=== PATIENT | female | born 1965 | race Caucasian/White ===

== ENCOUNTER 2018-11-04 23:44 | Emergency (ER) | payer BC ==
--- NOTE | 2018-11-05 03:51 | ER Document Report ---
ED General - General Chief Complaint: Back Pain Stated Complaint: WEAKNESS Time Seen by Provider: 11/05/18 03:50 Primary Care Provider: NEVA LOBATO NP [NO LOCAL MD] - 11/07/18 Notes: Patient is a 53-year-old female brought in by ambulance who presents to the emergency department with a chief complaint of back pain. Patient states that she has chronic back pain and when she has a herniated disc. She was able to s how a picture on her phone, but did not have paperwork on her MRI. Patient is being seen by a account resolution specialist who have done 2 MRIs in the past, therefore diagnosing her herniated disc. Patient is scheduled for spine surgery on November 15. She called her primary care provider and they advised her to come to the ED to be evaluated. Patient states that she still is able to walk, but feels weaker than normal. Patient also states that she has some anal leaking and is unsure whether or not is able to pee. She states that she cannot feel her bladder. States that she is along dermatomes L4 and L5. Patient is currently on gabapentin, Mirapex, [place], and diclofenac for her pain. TRAVEL OUTSIDE OF THE [place] IN LAST 30 DAYS: No - Related Data Allergies/Adverse Reactions: ampicillin Allergy (Verified 11/04/18 23:49) Past Medical History - Social History Smoking Status: Current Every Day Smoker Chew tobacco use (# tins/day): No Frequency of alcohol use: None Drug Abuse: None Family History: Reviewed & Not Pertinent Patient has suicidal ideation: No Patient has homicidal ideation: No Renal/ Medical History: Denies: Hx Peritoneal Dialysis Review of Systems - Review of Systems Notes: REVIEW OF SYSTEMS: CONSTITUTIONAL : Denies recent illness. Denies recent unintentional weight loss. Denies fever, chills, or sweats. EENT: Denies eye, ear, throat, or mouth pain, discharge, or symptoms. Denies nasal or sinus congestion. CARDIOVASCULAR: Denies chest pain. RESPIRATORY: Denies shortness of breath, cough, congestion, difficulty breathing, or wheezing. GASTROINTESTINAL: Denies nausea, vomiting, and diarrhea. Denies abdominal pain. Denies constipation. GENITOURINARY: Denies difficulty urinating, burning, blood in urine, urgency or frequency. MUSCULOSKELETAL: See HPI SKIN: Denies rash, itchiness, or lesions HEMATOLOGIC : Denies easy bruising or bleeding. LYMPHATIC: Denies swollen, painful, enlarged glands. NEUROLOGICAL: See HPI PSYCHIATRIC: Denies stress, anxiety, alteration in sleep patterns, or depression. All other systems reviewed and negative. Physical Exam - Vital signs Vitals: Temp Pulse Resp BP Pulse Ox 98.1 F 87 16 130/78 H 96 11/04/18 23:49 11/04/18 23:49 11/04/18 23:49 11/04/18 23:49 11/04/18 23:49 - Notes Notes: Exam the morning on the PHYSICAL EXAMINATION: GENERAL: Appears well, healthy, well-nourished, no acute distress. HEAD: Normocephalic, atraumatic. EYES: PERRL, conjunctiva normal, all extraocular movements intact, sclera nonicteric ENT: Moist mucous membranes. NECK: Supple, no noticeable swelling, redness, rash. Normal range of motion. LUNGS: Equal breath sounds bilaterally and clear to auscultation. No wheezes rales or rhonchi. CARDIOVASCULAR: S1-S2, regular rate, regular rhythm. Radial pulses 2+, normal. ABDOMEN: Normoactive bowel sounds. Soft, nontender, no guarding, no rebound tenderness, and no masses palpated. EXTREMITIES: No pitting or edema. No cyanosis. NEUROLOGICAL: Moves all extremities upon command. Strength 4/5 in lower extremities. Strength 5 out of 5 in upper extremities. PSYCH: Normal mood, normal affect. SKIN: Warm, dry. No rash, lesions, ulcerations noted. Normal skin turgor. Course - Re-evaluation Re-evalutation: 11/05/18 06:45 Patient CBC and chemistries are unremarkable at this time. I did a rectal exam with JELENA Rawls at bedside. The patient has rectal tone and was able to walk for me. Patient still does have a feeling along the dermatomes S2-S5. I discussed the risks and benefits of having an MRI. Patient feels that an MRI will not help with fixing the problem. I agree with this, as she does have surgery scheduled in 10 days from now. Patient states that she feels that not rosendo was done. I told her that labs were done and I did a rectal exam. I have advised her to follow-up with her surgeon on Wednesday. I thoroughly discussed return precautions. Follow-up precautions were given. Verbal discharge instructions were given to the patient. They verbalized understanding. They are stable for discharge. Your - Vital Signs Vital signs: Temp Pulse Resp BP Pulse Ox 98.1 F 72 16 132/87 H 96 11/04/18 23:49 11/05/18 07:51 11/05/18 07:51 11/05/18 07:51 11/05/18 07:51 - Laboratory Result Diagrams: 11/05/18 05:05 11/05/18 05:05 Laboratory results interpreted by me: 11/05/18 11/05/18 05:05 05:05 WBC 11.0 H Chloride 111 H Creatinine 0.48 L Discharge - Discharge Clinical Impression: Back pain Qualifiers: Back pain location: back pain in unspecified location Chronicity: chronic Back pain laterality: bilateral Qualified Code(s): M54.9 - Dorsalgia, unspecified Condition: Stable Disposition: HOME, SELF-CARE Additional Instructions: You were seen today in the emergency department for back pain, rectal leakage, and inability to feel the urge to urinate. Your rectal exam showed that you did have rectal tone. Please follow-up with your account resolution specialist on Wednesday in regards to this visit. Please continue to take your current pain medication. If you are unable to walk, urinate on your self, or stool on yourself, please return to the emergency department. Referrals: NEVA LOBATO NP [NO LOCAL MD] - 11/07/18
[2018-11-05] MEDS ORDERED: GABAPENTIN 300 MG CAPSULE PO ONE (04:08)
[2018-11-05] MEDS ORDERED: HYDROCODONE/ACETAMINOPHEN 5-325 MG TABLET PO ONE (04:08)
[2018-11-05 05:31] LABS: ABSOLUTE BASOPHILS # (AUTO) 0.1 10^3/uL (0.0-0.2); ABSOLUTE EOSINOPHILS # (AUTO) 0.3 10^3/uL (0.0-0.6); ABSOLUTE LYMPHOCYTES (AUTO) 2.8 10^3/uL (0.5-4.7); ABSOLUTE MONOCYTES (AUTO) 0.7 10^3/uL (0.1-1.4); ABSOLUTE NEUT (AUTO) 7.1 10^3/uL (1.7-8.2); EOSINOPHILS % (AUTO) 2.9 % (0-6); HEMATOCRIT 42.3 % (36.0-47.0); HEMOGLOBIN 14.4 g/dL (12.0-15.5); LYMPHOCYTES % (AUTO) 25.2 % (13-45); MEAN CORPUSCULAR HEMOGLOBIN 31.4 pg (27.0-33.4); MEAN CORPUSCULAR HGB CONC 34.1 g/dL (32.0-36.0); MEAN CORPUSCULAR VOLUME 92 fl (80-97); MONOCYTES % (AUTO) 6.6 % (3-13); PLATELET COUNT 247 10^3/uL (150-450); RED BLOOD COUNT 4.58 10^6/uL (3.72-5.28); RED CELL DISTRIBUTION WIDTH 13.2 % (11.5-14.0); SEGMENTED NEUTROPHILS % (AUTO) 64.3 % (42-78); TOTAL CELLS COUNTED % (AUTO) 100 %
[2018-11-05 05:51] LABS: ALANINE AMINOTRANSFERASE 18 U/L (9-52); ALBUMIN 4.1 g/dL (3.5-5.0); ALKALINE PHOSPHATASE 61 U/L (38-126); ANION GAP 6 (5-19); ASPARTATE AMINO TRANSFERASE 24 U/L (14-36); BILIRUBIN,DIRECT 0.3 mg/dL (0.0-0.4); BILIRUBIN,TOTAL 0.3 mg/dL (0.2-1.3); BLOOD UREA NITROGEN 14 mg/dL (7-20); CALCIUM 9.5 mg/dL (8.4-10.2); CARBON DIOXIDE 25 mmol/L (22-30); CHLORIDE 111 mmol/L (98-107); GLUCOSE 102 mg/dL (75-110); SODIUM 141.8 mmol/L (137-145); TOTAL PROTEIN 6.8 g/dL (6.3-8.2)
[2018-11-05] MEDS ORDERED: HYDROCODONE/ACETAMINOPHEN 5-325 MG TABLET ONE (07:16)
[2018-11-05 07:59] VITALS: BP 132/87
== END 2018-11-05 07:57 | disposition home or self-care (01) ==
LOC: ER 23:44
DX: G89.29 Other chronic pain (principal); M54.9 Dorsalgia, unspecified; Z79.899 Other long term (current) drug therapy; Z79.891 Long term (current) use of opiate analgesic; F17.200 Nicotine dependence, unspecified, uncomplicated; Z88.0 Allergy status to penicillin
CPT/HCPCS: 36415; 80053; 85025; 99283